=== PATIENT | female | born 1940 | race African-American/Black ===

== ENCOUNTER 2016-10-12 11:49 | Inpatient (IN) ==
--- NOTE | 2016-10-12 13:52 | Diag Imaging Result Doc PS360 ---
EXAM: ABDOMEN/PELVIS W/O CONTRAST INDICATION: AAA TECHNIQUE: Dose reduction protocol was used. COMPARISON: Abdominal CTA dated 09/30/2016 FINDINGS: There is a small left pleural effusion and there is bibasilar atelectasis. There has been interval stent graft repair of the abdominal aortic aneurysm seen on the previous study. The eccentric saccular aneurysm arising from the left side of the proximal aorta is approximately stable in size measuring up to 4.2 x 3.8 cm axially (4.3 x 4.0 cm previously, remeasured). There has also been interval placement of stents in the celiac trunk, SMA, and left renal artery. There are stable hepatic cysts. There are stable renal cystic appearing lesions, some of which may contain internal blood products or proteinaceous debris. Like the previous study, there is extensive diverticulosis coli. There has been interval development of mild inflammatory stranding around the proximal ascending colon centered around several diverticula suggesting acute diverticulitis. There is no free abdominal gas or loculated pericolonic fluid to indicate rupture. The remainder of the solid viscera of the abdomen and pelvis and the remainder of the GI tract is essentially stable as compared to the previous study. IMPRESSION: 1.Interval stent graft repair of the eccentric proximal abdominal aortic aneurysm, which is approximately stable in size. 2.Interval stenting of the left renal artery, celiac trunk, and SMA. 3.Severe diverticulosis coli with interval development of focal inflammatory stranding around a short segment of the proximal ascending colon suggesting acute diverticulitis. There is no evidence of rupture on this study. 4.Development of a small left pleural effusion and bibasilar atelectasis. 5.Other incidental/nonacute findings detailed above. Electronically signed by Rob Aranda 10/12/2016 1:50 PM
[2016-10-12] MEDS: DILAUDID IV PRN ×2 (15:33→19:48)
[2016-10-12] MEDS: PEPCID IV SCH (15:33)
[2016-10-12] MEDS: LEVAQUIN 250 MG/D5W 250 MG/50 ML IVPB IV SCH (19:48)
[2016-10-12] MEDS: FLAGYL 250 MG/NS 250 MG/50 ML IVPB IV SCH (21:00)
[2016-10-12] MEDS: ZOFRAN IV PRN (21:57)
[2016-10-13] MEDS: NS 1,000 ML IV SCH (00:49)
[2016-10-13] MEDS: SODIUM CHLORIDE 0.9% INJ SCH ×2 (00:49→22:38)
[2016-10-13] MEDS: PEPCID IV SCH ×3 (00:49→22:38)
--- NOTE | 2016-10-13 00:49 | HISTORY AND PHYSICAL ---
CHIEF COMPLAINT: Abdominal pain. HISTORY OF PRESENT ILLNESS: In brief, she is a 76-year-old female, recently discharged from the hospital at [facility] a week ago. 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 Apparently, patient had in the [facility] endovascular graft at thoracoabdominal area by Dr. Joycelyn Tavares. Patient also had left renal artery stent as well as celiac access. She was sent home and follow up in 4 weeks, on 11/07/2016. She also had kidney failure requiring temporary dialysis. She came in my office with abdominal pain, nausea, vomiting. Chest x -ray showed endovascular graft, mild pleural effusion. Investigations, CBC, mild anemia. Creatinine 2.3. She had a baseline creatinine that was normal 4 weeks ago. Basically admitted to the hospital for the evaluation of the back pain, abdominal pain. After admission, patient had a CT scan of the abdomen and pelvis with internal stent graft repair, proximal abdominal aortic aneurysm which is stable. Interval stenting of left renal artery and celiac trunk and SMA. diverticulosis with focal inflammation around the short segment consistent with diverticulitis, development of small left pleural effusion. As a result, a hospital admission was warranted. PAST MEDICAL HISTORY: Abnormal EKG with P-waves in inferior leads, thoracoabdominal aneurysm graft, diverticulosis, GERD, hemorrhoids, history of shingles in the left T7 distribution, resolving, hypertension, discoid lupus, multiple renal cysts and liver cysts, osteoarthritis of left knee, osteoporosis of the bones. PAST SURGICAL HISTORY: Cholecystectomy, hysterectomy, , left eye cataract surgery, recent endograft repair of abdominal aortic aneurysm, proximal by Dr. Tavares. MEDICATIONS: In my office, amlodipine 10 mg daily, Fosamax once a week, Protonix 40 daily, vitamin D, 50,000 once a week, Flexeril as needed. ALLERGIES: Penicillin, sulfa drugs. SOCIAL HISTORY: Lives in [place], single, 5 kids. No smoking. No alcohol abuse. FAMILY HISTORY: Father of aneurysm at 84. Mom of kidney failure at 82. REVIEW OF SYSTEMS: HEENT: Alopecia on the scalp due to discoid lupus. No vision problem. No earache. No sore throat. Neck: No goiter. No lymphadenopathy. No bruit. Cardiopulmonary: No chest pain, shortness of breath, PND, orthopnea. Gastrointestinal: Lower back pain, abdominal pain, nausea. No constipation, diarrhea, bleeding per rectum. Genitourinary: No history of hesitancy, frequency. No swelling of legs. Joint pains. Neurologic: No focal symptoms or weakness. EXAMINATION: Vitals: Low-grade fever, stable. 5 feet 2 inches, 180 pounds. HEENT: Atraumatic, normocephalic. Pupils equal, react to light. TMs are normal. Nose and throat within normal limits. Neck: Supple. No lymphadenopathy. No goiter. Chest: Bilateral air entry. No rales, no wheezing. Heart: Sounds are regular. Abdomen: Belly is soft, diffusely tender. No signs of peritonitis. Extremities: Trace pedal edema. Neurologic: No obvious neurological deficits noted. INVESTIGATIONS: In my office are CBC: Hemoglobin 9, normal CBC. Hematocrit 28 , normal platelet count. SMA 7: Creatinine is 2.3. CT scan of the abdomen and pelvis findings were discussed. ASSESSMENT AND PLAN: This 76-year-old, female admitted to the hospital with abdominal pain, back pain, recent endovascular graft at thoracoabdominal aneurysm with stents in the left renal artery, celiac stent by Dr. Tavares, presented with anemia, chronic kidney disease with diverticulitis. 1. Gentle hydration with IV fluids 50 mL/hour. Continue on IV Levaquin and IV Flagyl. 2. Deep venous thrombosis prophylaxis with antithrombotic stockings 3. Nausea, treat with Zofran. 4. Hypertension, on Norvasc. 5. Gastrointestinal prophylaxis with intravenous Pepcid. We will also ask for Dr. Presley to stand-by consult and repeat the blood work up in the morning: CBC, CMP, PT, and sedimentation rate, urinalysis for eosinophils. We will follow up. cc: Randy Dickson MD [facility] SYSTEM[facility]
[2016-10-13] MEDS: FLAGYL 250 MG/NS 250 MG/50 ML IVPB IV SCH ×4 (04:47→22:24)
[2016-10-13 06:07] LABS: HEMATOCRIT 27.9 % (37.0-47.0); MCH 27.6 PG (27-31); MCHC 32.3 g/dL (33-37); MCV 85.6 FL (81-99); MPV 10.2 FL (7.4-10.4); RBC 3.26 XMIL (4.2-5.4)
[2016-10-13 06:20] LABS: INR 1.07; PROTIME 11.3 Seconds (9.2-11.7)
[2016-10-13 06:43] LABS: ALBUMIN 3.4 g/dL (3.5-5.0); CALCIUM 8.4 mg/dL (8.8-10.2); POTASSIUM 3.8 mmol/L (3.5-5.1); TOTAL BILIRUBIN 0.69 mg/dL (0.20-1.00); TOTAL PROTEIN 6.4 g/dL (6.3-8.3)
[2016-10-13] MEDS: DILAUDID IV PRN ×3 (06:43→19:18)
[2016-10-13] MEDS: ZOFRAN IV PRN ×3 (06:43→19:19)
[2016-10-13] MEDS: NORVASC PO SCH (09:33)
[2016-10-13] MEDS: LEVAQUIN 250 MG/D5W 250 MG/50 ML IVPB IV SCH (18:07)
--- NOTE | 2016-10-13 18:20 | PROGRESS NOTE ---
DATE: 10/13/2016 SUBJECTIVE: Patient is slowly getting better. Decreased abdominal pain. REVIEW OF SYSTEMS: None reported. PHYSICAL EXAMINATION: Afebrile. Vitals are stable.HEENT: Within normal limits. Neck: Supple. No lymphadenopathy. Chest: Clear. Heart: Sounds are regular. Abdomen: Belly is soft, decreased tenderness. No obvious neurological deficits. INVESTIGATIONS: CBC: White cell count 10, hematocrit 27, platelets 207,000. Sedimentation rate 55. SMA 7, sodium 143, potassium 3.8, BUN 28, creatinine 2.3. Calcium 8.4. ASSESSMENT AND PLAN: 1. Diverticulitis. Continue on IV Flagyl and IV Levaquin. 2. Chronic kidney disease status post renal artery stent, stable. 3. Hypertension on amlodipine. 4. GI prophylaxis with intravenous Pepcid. 5. Reconcile home medications. LEVEL OF DOCUMENTATION: 25 minutes. cc: Randy Dickson MD
[2016-10-13] MEDS: LIPITOR PO SCH (22:24)
[2016-10-14] MEDS: LEVAQUIN 250 MG/D5W 250 MG/50 ML IVPB IV SCH ×3 (00:10→20:26)
[2016-10-14] MEDS: PEPCID IV SCH ×3 (00:11→23:10)
[2016-10-14] MEDS: ZOFRAN IV PRN ×3 (01:39→14:53)
[2016-10-14] MEDS: DILAUDID IV PRN ×4 (01:40→18:02)
[2016-10-14] MEDS: FLAGYL 250 MG/NS 250 MG/50 ML IVPB IV SCH ×3 (04:25→20:25)
[2016-10-14] MEDS: NORVASC PO SCH (09:00)
[2016-10-14] MEDS: PREDNISONE PO SCH ×2 (09:00)
[2016-10-14 10:49] LABS: URINE MICRO REVIEW NEEDED? NO; URINE SOURCE VOIDED
[2016-10-14 10:53] LABS: BILIRUBIN URINE NEGATIVE (NEGATIVE); BLOOD URINE TRACE (NEGATIVE); COLOR YELLOW; GLUCOSE URINE NEGATIVE (NEGATIVE); LEUKOCYTES URINE NEGATIVE (NEGATIVE); NITRITE URINE NEGATIVE (NEGATIVE); PH URINE 6.5; PROTEIN URINE 200 mg/dL (NEGATIVE); SP GRAVITY URINE 1.009; TURBIDITY URINE CLEAR (CLEAR); UROBILINOGEN URINE NORMAL (NORMAL)
[2016-10-14 10:54] LABS: UR EPITHELIAL CELLS <10 /HPF (<10); URINE BACTERIA 1+ /HPF; URINE RBC <10 /HPF (<10); URINE WBC <10 /HPF (<10)
[2016-10-14] MEDS: SODIUM CHLORIDE 0.9% INJ SCH ×2 (12:35→23:10)
--- NOTE | 2016-10-14 12:56 | PROGRESS NOTE ---
DATE: 10/14/2016 SUBJECTIVE: The patient is doing very well. Decreased abdominal pain, back pain. REVIEW OF SYSTEMS: None reported. PHYSICAL EXAMINATION: Afebrile. Temp is 101 degrees, blood pressure is 180/89.HEENT Exam: Within normal limits. Neck: Supple. Chest: Clear. Heart: Sounds are regular. Abdomen: Belly is soft. No signs of peritonitis. No neurological deficits. CT of the abdomen and pelvis reviewed with radiologist Dr. Piña. A stent was placed at SMA left renal artery and the abdominal aneurysm over the kidneys. 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 Sedimentation rate was 55. Urine for eosinophils are pending. She also has multiple cysts in both kidneys as well as in the liver. ASSESSMENT AND PLAN: 1. Possible sigmoid diverticulitis. IV antibiotics on Levaquin and Flagyl. 2. Chronic kidney disease. Stable. 3. History of discoid lupus, on prednisone. 4. Hypertension, on Norvasc 10 mg daily. 5. Hyperlipidemia on Lipitor. 6. Gastrointestinal prophylaxis with intravenous Pepcid. Plan of care is discussed with Dr. Piña. We will do the duplex scan for ultrasound of the aorta as well as both renal arteries to see the blood flow. Have discussed with the patient and the caregiver. Level documentation 25 minutes. cc: Randy Dickson MD
--- NOTE | 2016-10-14 14:08 | Diag Imaging Result Doc PS360 ---
EXAM: US ABDOMEN-COMPLETE HISTORY: aneurysm blood flow, ERI/ARF TECHNIQUE: Transabdominal COMMENT: The saccular aneurysm/pseudoaneurysm which was demonstrated on CT on 10/12/2016 and 09/30/2016 is not demonstrated due to the patient's body habitus. The visualized portions of the aorta appear to be normal in caliber with normal color Doppler flow. The kidneys contain cysts bilaterally with a cyst measuring 4.2 cm in the right kidney and a 4.0 cm cyst on the left. There is no identifiable Doppler flow in the right kidney. The inferior vena cava and pancreas are unremarkable as seen. There are multiple cysts in the liver largest of which is 2.3 cm in the left lobe. There is antegrade flow in the portal vein. The common bile duct measures 1 cm in diameter. The gallbladder is surgically absent. The spleen is somewhat small measuring less than 7 cm in greatest dimension. IMPRESSION: No identifiable flow in the right kidney. Bilateral renal and hepatic cysts. Electronically signed by Jose Piña 10/14/2016 2:05 PM
[2016-10-14] MEDS: LIPITOR PO SCH (20:25)
[2016-10-15] MEDS: FLAGYL 250 MG/NS 250 MG/50 ML IVPB IV SCH ×3 (05:08→21:12)
[2016-10-15] MEDS: NORVASC PO SCH (09:25)
[2016-10-15] MEDS: PREDNISONE PO SCH ×2 (09:25)
--- NOTE | 2016-10-15 10:48 | PROGRESS NOTE ---
DATE: 10/15/2016 SUBJECTIVE: The patient did not have sleep last night with other roommate. Decreased abdominal pain, flank pain. REVIEW OF SYSTEMS: None reported. Low-grade fever. OBJECTIVE: Vital signs: Stable. Blood pressure 150/69. I's and O's: Positive 1000 mL. HEENT: Within normal limits. Slightly pale. Neck: Supple. Chest: Clear. Heart: Sounds are regular. Abdomen: Belly is soft, nontender. Good bowel sounds. No masses palpable. Extremities: No peripheral edema, cyanosis. Neurologic: No obvious neurological deficits. INVESTIGATIONS: Abdominal ultrasound: There is normal blood flow to the right kidney. ASSESSMENT AND PLAN: 1. Possible diverticulitis. Continue on IV Levaquin and Flagyl. 2. Chronic kidney disease. Follow up on urine for eosinophils. 3. Status post endovascular stent for thoracoabdominal aneurysm, along with left renal artery and SMA artery, stable. 4. Hypertension. Controlled on amlodipine. 5. Discoid lupus. On prednisone. 6. Hyperlipidemia. On Lipitor. PLAN OF CARE: Advance the diet. Is stable to be discharged in the morning. cc: Randy Dickson MD
[2016-10-15] MEDS: PEPCID IV SCH ×2 (14:04→21:13)
[2016-10-15] MEDS: SODIUM CHLORIDE 0.9% INJ SCH (14:04)
[2016-10-15] MEDS: NS 1,000 ML IV SCH ×3 (16:40→21:30)
[2016-10-15] MEDS: LEVAQUIN 250 MG/D5W 250 MG/50 ML IVPB IV SCH ×2 (18:06→19:44)
[2016-10-15] MEDS: DILAUDID IV PRN (21:12)
[2016-10-15] MEDS: LIPITOR PO SCH (21:13)
[2016-10-15] MEDS: ZOFRAN IV PRN (21:27)
[2016-10-16] MEDS: PEPCID IV SCH ×3 (05:00→23:18)
[2016-10-16] MEDS: FLAGYL 250 MG/NS 250 MG/50 ML IVPB IV SCH ×3 (05:00→23:18)
[2016-10-16] MEDS: DILAUDID IV PRN ×4 (06:03→21:49)
[2016-10-16] MEDS: ZOFRAN IV PRN ×2 (06:05→18:29)
[2016-10-16] MEDS: NORVASC PO SCH (08:54)
[2016-10-16] MEDS: PREDNISONE PO SCH ×2 (08:54)
--- NOTE | 2016-10-16 15:43 | PROGRESS NOTE ---
DATE: 10/16/2016 SUBJECTIVE: The patient is a little better today and decreased abdominal pain. Flank pain. REVIEW OF SYSTEMS: None reported. PHYSICAL EXAMINATION: Vital Signs: She is afebrile, pulse rate is 77, respirations 20. Blood pressure 150/66, 98% on room air. Input and output: 620 mL positive. HEENT: Atraumatic, normocephalic. Pupils equal, reactive to light. Chest: Clear. Heart: Sounds are regular. Abdomen: Belly is soft, nontender. No signs of peritonitis. Neurologic: No obvious neurological deficits noted. ASSESSMENT AND PLAN: 1. Abdominal pain. Questionable diverticulitis, on IV Levaquin and metronidazole. 2. Hyperlipidemia, on Lipitor. 3. Hypertension, on Norvasc. 4. Discoid lupus, on prednisone 7 mg daily. 5. Thoracoabdominal aneurysm, status post endovascular graft as well as the left renal artery and superior mesenteric artery, stable. 6. Multiple cysts in the liver and kidneys, stable. 7. Chronic kidney disease. Anemia. We will repeat the blood work up in the morning and also will discuss with vascular surgeon in [place] on Sunday. LEVEL OF DOCUMENTATION: 15 minutes. cc: Randy Dickson MD
[2016-10-16] MEDS: LIPITOR PO SCH (20:30)
[2016-10-16] MEDS: LEVAQUIN 250 MG/D5W 250 MG/50 ML IVPB IV SCH (20:30)
[2016-10-16] MEDS: SODIUM CHLORIDE 0.9% INJ SCH (23:18)
[2016-10-17] MEDS: DILAUDID IV PRN ×4 (01:17→21:23)
[2016-10-17 05:58] LABS: MANUAL DIFF NEEDED? NO
[2016-10-17 06:08] LABS: BASO% 0.2 % (0.0-0.8); EOS# 0.17 X1000 (0.0-0.7); EOS% 1.8 % (0.0-10.0); HEMOGLOBIN 8.2 g/dL (12.0-16.0); LYMPH# 1.58 X1000 (1.2-3.4); MCH 26.9 PG (27-31); MCHC 31.5 g/dL (33-37); MCV 85.2 FL (81-99); MONO# 0.94 X1000 (0.11-0.59); MONO% 10.1 % (1.7-9.3); MPV 9.7 FL (7.4-10.4); NEUT% 70.9 % (42.2-75.2); PLT 253 X1000 (130-400); RBC 3.05 XMIL (4.2-5.4)
[2016-10-17 06:31] LABS: CALCIUM 8.1 mg/dL (8.8-10.2); POTASSIUM 3.6 mmol/L (3.5-5.1)
[2016-10-17] MEDS: FLAGYL 250 MG/NS 250 MG/50 ML IVPB IV SCH ×3 (06:57→23:09)
[2016-10-17] MEDS: NS 1,000 ML IV SCH ×2 (06:59→23:09)
[2016-10-17] MEDS: NORVASC PO SCH (09:51)
[2016-10-17] MEDS: PREDNISONE PO SCH ×2 (09:51)
[2016-10-17] MEDS: PEPCID IV SCH ×2 (12:01→23:37)
[2016-10-17] MEDS ORDERED: LASIX IV ONE (12:08)
[2016-10-17] MEDS: LEVAQUIN 250 MG/D5W 250 MG/50 ML IVPB IV SCH (21:20)
[2016-10-17] MEDS: LIPITOR PO SCH (21:20)
[2016-10-18] MEDS: DILAUDID IV PRN (01:04)
[2016-10-18] MEDS: NS 1,000 ML IV SCH (02:02)
[2016-10-18 05:30] LABS: MANUAL DIFF NEEDED? NO
[2016-10-18] MEDS: FLAGYL 250 MG/NS 250 MG/50 ML IVPB IV SCH (06:00)
[2016-10-18 06:22] LABS: BASO% 0.2 % (0.0-0.8); EOS% 2.2 % (0.0-10.0); HEMATOCRIT 31.8 % (37.0-47.0); HEMOGLOBIN 10.5 g/dL (12.0-16.0); IMM GRAN# 0.02 X1000 (0.0-0.04); IMM GRAN% 0.2 % (0.0-0.5); LYMPH# 1.69 X1000 (1.2-3.4); LYMPH% 18.8 % (20.5-51.1); MCH 27.7 PG (27-31); MCV 83.9 FL (81-99); MONO# 0.87 X1000 (0.11-0.59); MONO% 9.7 % (1.7-9.3); MPV 9.7 FL (7.4-10.4); NEUT% 68.9 % (42.2-75.2); PLT 223 X1000 (130-400); RBC 3.79 XMIL (4.2-5.4)
[2016-10-18 06:26] LABS: CALCIUM 8.2 mg/dL (8.8-10.2); POTASSIUM 3.5 mmol/L (3.5-5.1)
[2016-10-18] MEDS: PREDNISONE PO SCH ×2 (08:15→08:16)
[2016-10-18] MEDS: NORVASC PO SCH (08:16)
[2016-10-18 08:42] VITALS: BP 166/79
--- NOTE | 2016-10-18 21:33 | DISCHARGE SUMMARY ---
ADMISSION DATE: 10/12/2016 DISCHARGE DATE: 10/18/2016 DISCHARGING DIAGNOSIS: Abdominal pain. Questionable diverticulitis. SECONDARY DIAGNOSIS: 1. Endovascular stent for thoracoabdominal aneurysm. 2. Stent in the superior mesenteric artery. 3. Left renal stent. 4. Bilateral polycystic kidney disease as well as in the liver. 5. Diverticulosis. 6. Acid reflux disease. 7. Hemorrhoids. 8. Discoid lupus. 9. Osteoarthritis of the knees. CONSULTS: Dr. Presley. PROCEDURES: Transfusion of 2 units of packed RBCs. BRIEF HISTORY: Please see the H and P that was done on 10/12/2016. In brief, she is a 76-year- old female admitted to the hospital with abdominal pain, anemia, chronic kidney failure. Recently discharged from [facility] after placing the endovascular stent for thoracoabdominal aneurysm, impending leak. I do not have any reports from them. HOSPITAL COURSE: CT of the abdomen and pelvis without contrast revealed possible diverticulitis. There is no blood flow on the right renal artery on the ultrasound. Right kidney is small. Creatinine is stable from the discharge. She was given IV antibiotics with Flagyl and Cipro. She has intermittent gas pains requiring Protonix and Maalox. She was also anemic. I gave her two units of packed red blood cells. Results discussed with the patient as well as Dr. Presley. The rest of the hospital course was uneventful. LABORATORIES AT THE TIME OF DISCHARGE FOLLOWS: CBC: White cell count 9, hematocrit 32, platelet count 223,000. Sedimentation rate was 55. SMA7: Sodium 143, potassium 3.5, chloride 109, BUN 24, creatinine 2.3. Glucose 8.2. Liver function test was normal. CT scan of the abdomen and pelvis without contrast: Interval stent graft repair. Proximal abdominal aortic aneurysm, which is stable. Stenting in the left renal artery, celiac trunk and SMA. Severe diverticulosis, focal stranding, development of some effusions. Abdominal ultrasound: No blood flow identified in the right kidney. DISCHARGE INSTRUCTIONS: 1. Zantac 300 daily, amlodipine 10 daily, Protonix 40 in the morning, prednisone 7 mg daily, Lipitor 40 daily, MiraLAX as needed, doxycycline 100 p.o. b.i.d. 2. Followup in my office in 10 days as well as [facility] Surgical Team, Dr. Tavares, on 11/07/2016. cc: MD Kwaku Berry MD
--- NOTE | 2016-10-19 03:37 | PROGRESS NOTE ---
DATE: 10/17/2016 SUBJECTIVE: She had surgery for aneurysm. She does not have any chest pain. She is still anemic. Hemoglobin has gone down from 9.1 to 8.2, hematocrit 26. We will transfuse her 2 units of packed RBCs. I discussed her case with Dr. Dickson early this morning, and he wants to transfuse her. -5 cc: MD Randy Rios MD
== END 2016-10-18 10:27 | disposition home health service (06) ==
LOC: DIRADM 11:49 → 4N 12:45 → DIRADM 10-13 10:27 → 4N 10-13 10:33
PROVIDERS: ADMIT Internal Medicine; ATTEND Internal Medicine

== ENCOUNTER 2017-01-17 12:39 | Inpatient (IN) ==
[2017-01-17] MEDS ORDERED: SALINE LOCK IV FLUID XX ONE (15:08)
[2017-01-17] MEDS: ZOFRAN IV PRN ×2 (15:44→21:58)
[2017-01-17] MEDS: NUBAIN IV PRN ×2 (15:44→21:50)
--- NOTE | 2017-01-17 19:49 | HISTORY AND PHYSICAL ---
REASON FOR ADMISSION: Complains of severe left flank pain. Nausea. HISTORY OF PRESENT ILLNESS: She is a 76-year-old, female, with a known history of thoracoabdominal aneurysm, repaired by [facility] complicated by right kidney atrophy with chronic kidney disease, on lifelong antibiotics complicated by fixed drug eruption with Cipro on doxycycline. Was evaluated with severe left flank pain, nausea, and today in my office the creatinine is 2.7. Nausea, not able to eat, admitted to the hospital for IV pain control, IV steroids for underlying mixed connective tissue disease. Also repeat the CT of the abdomen and pelvis. PAST MEDICAL HISTORY: Abnormal EKG with Q-waves in the inferior leads. Cardiac workup was negative. Thoracoabdominal aneurysm with graft repair. Diverticulosis. Acid reflux disease. Hemorrhoids, history of shingles in the left T7 distribution, resolving. Hypertension, discoid lupus/mixed connective tissue disease. Multiple renal and liver cysts. Osteoarthritis of left knee. Osteoporosis and also chronic renal failure. Left renal artery stent and stent in the superior mesenteric artery. PAST SURGICAL HISTORY: Cholecystectomy, hysterectomy, , left cataract surgery. repair of thoracoabdominal aneurysm, by Dr. Kovacs and SMA stent. Left renal artery stent. MEDICINES: Zantac 300 daily, prednisone 10 mg daily, Lipitor 40 daily, doxycycline 100 daily, MiraLAX 17 g daily, amlodipine 10 daily. ALLERGIES: Penicillin, sulfa drugs. Cipro. SOCIAL HISTORY: Lives in [place]. Single, 5 kids, no smoking. No alcohol. FAMILY HISTORY: Father of aneurysm at 84. Mom of kidney failure at 82. REVIEW OF SYSTEMS: HEENT exam: Discoid lupus on the face, on the scalp and no headache. No vision problem. No earache. No sore throat. Neck: No goiter. No lymphadenopathy. No bruit. Cardiopulmonary: No chest pain, shortness of breath, PND, orthopnea. GI: Left flank pain, nausea. Not eating. No constipation. No altered bowel habits. No bleeding per rectum. Skin: Fixed drug eruption on Cipro. : No history of hesitancy, frequency, dysuria. Extremities: No swelling of legs, joint pains, back pain. Neuro exam: No focal symptoms or weakness. PHYSICAL EXAMINATION: VITAL SIGNS: Afebrile. Vitals are stable. 5 feet 3, 169 pounds. HEENT: Within normal limits with scar tissue on the scalp. NECK: Supple. No lymphadenopathy. No goiter. CHEST: Clear to auscultation. HEART: Sounds are regular. ABDOMEN: Belly is soft, diffusely tender, but no signs of peritonitis. EXTREMITIES: No peripheral edema, cyanosis. NEUROLOGIC: No obvious neurological deficits. INVESTIGATION: In my office CBC is normal. SMA-7, BUN is 37, creatinine 2.7. ASSESSMENT AND PLAN: 1. A 76-year-old, pleasant, female, admitted to the hospital with left flank pain. Etiology to be determined. Plan is we will get a CT of the abdomen and pelvis in the morning. 2. Chronic kidney disease. Stable. 3. Hypertension on Norvasc. 4. Gastrointestinal prophylaxis with IV Protonix. 5. Reconcile home medicines. 6. Fixed drug eruption with the Cipro. Off the medication. 7. Discoid lupus/mixed connective disease. IV steroids and pain control with Nubain. Will follow up on the pending labs and currently stable. cc: Randy Dickson MD [facility]TD[facility]
[2017-01-17] MEDS: SODIUM CHLORIDE 0.9% INJ SCH (21:50)
[2017-01-17] MEDS: SOLU-MEDROL IV SCH (21:50)
[2017-01-17] MEDS: LIPITOR PO SCH (21:50)
[2017-01-17] MEDS: PROTONIX IV SCH (21:50)
[2017-01-18] MEDS: NUBAIN IV PRN ×2 (05:51→10:53)
[2017-01-18] MEDS: ZOFRAN IV PRN ×2 (05:51→13:23)
[2017-01-18] MEDS: SOLU-MEDROL IV SCH ×3 (06:03→20:58)
[2017-01-18 07:09] LABS: MANUAL DIFF NEEDED? NO
[2017-01-18 07:20] LABS: HEMATOCRIT 29.2 % (37.0-47.0); HEMOGLOBIN 9.5 g/dL (12.0-16.0); LYMPH# 0.98 X1000 (1.2-3.4); LYMPH% 18.5 % (20.5-51.1); MCH 26.8 PG (27-31); MCHC 32.5 g/dL (33-37); MCV 82.3 FL (81-99); MONO# 0.06 X1000 (0.11-0.59); MONO% 1.1 % (1.7-9.3); MPV 11.1 FL (7.4-10.4); NEUT% 80.4 % (42.2-75.2); PLT 241 X1000 (130-400); RBC 3.55 XMIL (4.2-5.4)
[2017-01-18 07:37] LABS: ALBUMIN 3.5 g/dL (3.5-5.0); CALCIUM 8.4 mg/dL (8.8-10.2); POTASSIUM 3.5 mmol/L (3.5-5.1); TOTAL BILIRUBIN 0.62 mg/dL (0.20-1.00); TOTAL PROTEIN 6.9 g/dL (6.3-8.3)
[2017-01-18 08:25] LABS: SED RATE 76 mm/hr (0-20)
--- NOTE | 2017-01-18 08:49 | Diag Imaging Result Doc PS360 ---
EXAM: CT ABDOMEN/PELVIS W/O CONTRAST INDICATION: left flank pain TECHNIQUE: Dose reduction protocol was used. COMPARISON: 10/12/2016 FINDINGS: There is subsegmental atelectasis at the lung bases there is trace pleural fluid at the left lung base. There has been a previous cholecystectomy. There is stable prominence of the common bile duct, likely related to postcholecystectomy status and age. There are several stable hepatic cysts. There is a solitary small calcification at the pancreatic tail that is stable. The pancreas is unremarkable, otherwise. The spleen and adrenal glands are unremarkable. There are multiple bilateral renal cysts that are stable and there is an isoechoic nodule arising from the medial aspect of the left kidney measuring up to 2.2 cm, stable. This probably represents a cyst containing blood products but it is nonspecific. Consider follow-up with contrast-enhanced abdominal CT. At least consider follow-up with ultrasound. No renal or ureteral stones are identified. There are a few vascular calcifications at the shari of both kidneys. There is no hydronephrosis. The urinary bladder is unremarkable. There is extensive diverticulosis coli but there is no evidence of diverticulitis. There is no evidence of bowel obstruction. The aortic stent graft and the stents in the celiac trunk, SMA, and left renal artery are stable. The eccentric saccular aneurysm arising from the left side of the suprarenal abdominal aorta has decreased in size during the interval measuring 3.3 x 3.0 cm axially (4.2 x 3.8 cm previously). IMPRESSION: 1.No renal or ureteral stones identified and no evidence of acute obstructive uropathy. 2.Uncomplicated extensive diverticulosis coli. 3.Interval decrease in size of the eccentric aneurysm at the left side of the superior abdominal aorta. 4.Other incidental/nonacute findings detailed above. Electronically signed by Rob Aranda 01/18/2017 8:47 AM
[2017-01-18] MEDS: MIRALAX PO SCH (10:12)
[2017-01-18] MEDS: NORVASC PO SCH (10:12)
[2017-01-18] MEDS: DOXYCYCLINE PO SCH (10:12)
--- NOTE | 2017-01-18 20:56 | PROGRESS NOTE ---
DATE: 01/18/2017 SUBJECTIVE: The patient is a little better after IV steroids. She had a CT of the abdomen and pelvis. Complains of back pain and etiology to be determined. REVIEW OF SYSTEMS: None reported. OBJECTIVE: Vital signs: She is afebrile. Vitals are stable. HEENT: Within normal limits. Neck: Supple. Chest: Clear. Heart: Sounds are regular. Abdomen: Belly is soft, nontender. Good bowel sounds. No masses palpable. Extremities: No peripheral edema, cyanosis. Neurologic: No obvious neurological deficits. LABORATORY: CBC: Sedimentation rate is 76. CRP was 112. SMA7: Creatinine is 2.7. ASSESSMENT AND PLAN: 1. Mixed connective tissue disease/discoid lupus. Follow up on anti-CAN panel, IV steroids. 2. Chronic back pain. CT of the abdomen and pelvis. Findings were reassuring. 3.Fixed drug eruption with Cipro. Stable. 4. DVT prophylaxis with antithrombotic stockings. GI prophylaxis IV Protonix. 5. Status post thoracoabdominal aneurysm repair. Continue prophylactic antibiotics with doxycycline. 6. Chronic kidney disease, stable, continue present medical therapy. LEVEL OF DOCUMENTATION: 25 minutes. cc: Randy Dickson MD [facility]
[2017-01-18] MEDS: SODIUM CHLORIDE 0.9% INJ SCH (20:58)
[2017-01-18] MEDS: PROTONIX IV SCH (20:58)
[2017-01-18] MEDS: LIPITOR PO SCH (20:58)
[2017-01-19] MEDS: AMBIEN PO PRN ×2 (00:17→21:16)
[2017-01-19] MEDS: SOLU-MEDROL IV SCH ×3 (03:24→17:21)
[2017-01-19] MEDS: NORVASC PO SCH (08:58)
[2017-01-19] MEDS: MIRALAX PO SCH (08:58)
[2017-01-19] MEDS: DOXYCYCLINE PO SCH (08:58)
[2017-01-19] MEDS ORDERED: AMBIEN PO PRN (09:07)
[2017-01-19] MEDS: LIPITOR PO SCH (21:16)
[2017-01-19] MEDS: NUBAIN IV PRN (21:17)
[2017-01-19] MEDS: PROTONIX IV SCH (21:17)
[2017-01-19] MEDS: SODIUM CHLORIDE 0.9% INJ SCH (21:17)
--- NOTE | 2017-01-19 21:43 | PROGRESS NOTE ---
DATE: 01/19/2017 SUBJECTIVE: The patient has a history of mixed connective tissue disease. Complains of left flank pain, getting better on steroids. OBJECTIVE: Vital Signs: Afebrile. Vitals are stable. HEENT Examination: Within normal limits. Neck: Supple. Chest: Clear to auscultation. Heart: Sounds are regular. Abdomen: Belly is soft, nontender. Good bowel sounds. Extremities: no peripheral edema or cyanosis. Neurologic: No obvious neurological deficits. LABS: Anti-JOLLY panel positive for anti-SCL 70 antibody. ASSESSMENT AND PLAN: 1. Discoid lupus/mixed connective disease. Elevated sedimentation rate and CRP. Continue IV steroids. 2. Status post endovascular graft repair of thoracoabdominal aneurysm. Stable. 3. Chronic kidney disease. Stable. 4. Continue IV steroids for the week and repeat the labs on Sunday. LEVEL OF DOCUMENTATION: 25 minutes. cc: Randy Dickson MD [facility]
[2017-01-20] MEDS: SOLU-MEDROL IV SCH ×4 (04:07→17:25)
[2017-01-20] MEDS: NUBAIN IV PRN ×2 (04:09→21:33)
[2017-01-20] MEDS: MIRALAX PO SCH (08:12)
[2017-01-20] MEDS: DOXYCYCLINE PO SCH (08:12)
[2017-01-20] MEDS: NORVASC PO SCH (08:15)
--- NOTE | 2017-01-20 11:13 | PROGRESS NOTE ---
DATE: 01/20/2017 SUBJECTIVE: The patient is doing very well, eating well, slept very well. IV was infiltrated. Complaints of back pain is improving. The rest of the review of systems are normal. PHYSICAL EXAMINATION: Vital Signs: She is afebrile. Vitals are stable. HEENT: Exam within normal limits. Neck is supple. Chest is clear. Heart sounds are regular. Belly soft, nontender. Good bowel sounds. No peripheral edema, cyanosis. No obvious neurological deficits. INVESTIGATIONS: SCL 70 antibody was positive. ASSESSMENT AND PLAN: 1. Exacerbation of mixed connective tissue disease. Continue IV steroids. Check the CRP and sedimentation rate. 2. Prophylactic antibiotics for aneurysm repair. 3. Chronic kidney disease, stable. 4. Hypertension is well controlled on amlodipine. 5. Insomnia. Ambien as needed. 6. Hyperlipidemia, on Lipitor. 7. Check the CBC, SMA-7, sedimentation rate and CRP in the morning. LEVEL OF DOCUMENTATION: 25 minutes. cc: Randy Dickson MD
[2017-01-20] MEDS: AMBIEN PO PRN (21:31)
[2017-01-20] MEDS: LIPITOR PO SCH (21:31)
[2017-01-20] MEDS: SODIUM CHLORIDE 0.9% INJ SCH (21:33)
[2017-01-20] MEDS: PROTONIX IV SCH (21:33)
[2017-01-21] MEDS: SOLU-MEDROL IV SCH ×3 (00:49→18:16)
[2017-01-21] MEDS: NUBAIN IV PRN ×3 (02:27→21:23)
[2017-01-21] MEDS: ZOFRAN IV PRN ×2 (02:30→21:22)
[2017-01-21 07:31] LABS: HEMOGLOBIN 9.5 g/dL (12.0-16.0); IMM GRAN# 0.07 X1000 (0.0-0.04); IMM GRAN% 0.6 % (0.0-0.5); LYMPH# 0.85 X1000 (1.2-3.4); LYMPH% 7.1 % (20.5-51.1); MANUAL DIFF NEEDED? YES; MCH 26.7 PG (27-31); MCHC 32.8 g/dL (33-37); MCV 81.5 FL (81-99); MONO% 1.7 % (1.7-9.3); MPV 10.5 FL (7.4-10.4); NEUT% 90.6 % (42.2-75.2); PLT 294 X1000 (130-400); RBC 3.56 XMIL (4.2-5.4)
[2017-01-21 07:34] LABS: CALCIUM 8.8 mg/dL (8.8-10.2); POTASSIUM 3.9 mmol/L (3.5-5.1)
[2017-01-21 07:57] LABS: BANDS 2 % (0-1); LYMPHS 6 % (21-51); MONO 2 % (1-9)
[2017-01-21 08:15] LABS: SED RATE 62 mm/hr (0-20)
[2017-01-21] MEDS: MIRALAX PO SCH (08:20)
[2017-01-21] MEDS: DOXYCYCLINE PO SCH (08:21)
[2017-01-21] MEDS: NORVASC PO SCH (08:21)
--- NOTE | 2017-01-21 14:01 | PROGRESS NOTE ---
DATE: 01/21/2017 SUBJECTIVE: Complains of left flank pain, intermittent pain. No nausea, vomiting, constipation. REVIEW OF SYSTEMS: None reported. OBJECTIVE: Vital signs: Temperature is 98 degrees, pulse is 68, blood pressure is 148/63. HEENT: Within normal limits. Neck: Supple. Chest: Clear. Heart: Sounds are regular. Abdomen: Belly is soft, nontender. Left flank tenderness improving. No obvious neurological deficits. INVESTIGATIONS: CBC: White cell count 11, hematocrit 29, platelets 294,000. Sedimentation rate is 62. SMA 7: Creatinine 3.1. CRP was down. Anti-CAN panel was positive for SCL. ASSESSMENT AND PLAN: 1. Chronic kidney disease, slightly worsening. We will stop the doxycycline. 2. Discoid lupus/mixed connective tissue disease. Elevation of sedimentation rate and CRP. Continue IV steroids. 3. Chronic kidney disease. Creatinine is 3.1. Oral hydration. 4. FDE with multiple antibiotics with Cipro. 5. Hypertension is stable. 6. Hyperlipidemia, stable. Continue IV steroids until the CRP and sedimentation rate are coming down. Will avoid NSAIDs for chronic kidney disease. LEVEL OF DOCUMENTATION: 25 minutes. cc: Randy Dickson MD MTDD
[2017-01-21] MEDS: LIPITOR PO SCH (21:22)
[2017-01-21] MEDS: PROTONIX IV SCH (21:23)
[2017-01-21] MEDS: AMBIEN PO PRN (21:23)
[2017-01-21] MEDS: SODIUM CHLORIDE 0.9% INJ SCH (21:23)
[2017-01-22] MEDS: SOLU-MEDROL IV SCH ×2 (01:54→08:34)
[2017-01-22] MEDS: NORVASC PO SCH (08:34)
[2017-01-22] MEDS: MIRALAX PO SCH (08:34)
[2017-01-22 08:50] VITALS: BP 179/84
--- NOTE | 2017-01-23 06:50 | DISCHARGE SUMMARY ---
ADMISSION DATE: 01/17/2017 DISCHARGE DATE: 01/22/2017 DISCHARGING DIAGNOSIS: Severe left flank pain, etiology to be determined. SECONDARY DIAGNOSES: 1. Endovascular stent for thoracoabdominal aneurysm. 2. 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 3. Bilateral polycystic kidney disease, as well as in the liver. 4. Diverticulosis. 5. Acid reflux disease. 6. Hemorrhoids. 7. 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 8. Osteoarthritis of both knees. 9. Fixed drug eruption due to ciprofloxacin. BRIEF HISTORY: Please see the H and P that was done on 01/17/2017. In brief, she is a 76-year- old, female with the above problems who was admitted to the hospital with severe left flank pain associated with nausea. She has elevated sedimentation rate and CRP. She was advised to take lifelong antibiotics for prophylaxis for aneurysm repair to prevent a graft infection. Patient could not tolerate ciprofloxacin due to fixed drug eruption. Patient was started on low dose of doxycycline. Renal function tests were not improving. HOSPITAL COURSE: The patient was given pain control and also IV steroids. Follow up on steroids and symptoms were much improved. At this time, the etiology is not clear. This could be cystic disease of the kidneys. Nevertheless, patient is feeling better and wants to go home. LABS: CBC: White cell count 11, hematocrit 29, platelets 294,000. Sedimentation rate was 62. SMA 7: Sodium 142, potassium 3.9, chloride 103, BUN 55, creatinine 3.1, glucose 139. CRP came down from 112 to 15. Anti-JOLLY antibody is negative except anti-SCL antibody is slightly positive. A CT scan of the abdomen and pelvis on 01/18/2017, no renal or ureteral stones. No acute obstructive uropathy. Uncomplicated diverticulosis coli. Interval decrease in the size of of aneurysm on the left side of the superior abdominal aorta. There are multiple bilateral renal cysts. DISCHARGING INSTRUCTIONS: 1. Amlodipine 10 daily, Protonix 40 daily, Lipitor 40 daily, MiraLAX 17 g daily , doxycycline 50 daily, prednisone 10 mg daily for underlying discoid lupus and anti-SCL 70 antibody. 2. Follow up at outpatient clinic and also follow up at [facility] with vascular surgeon for her aneurysm. cc: MD DEBI Berry
== END 2017-01-22 11:52 | disposition home or self-care (01) ==
LOC: DIRADM 12:39 → 3N 13:55
PROVIDERS: ADMIT Internal Medicine; ATTEND Internal Medicine